=== PATIENT | female | born 1990 | race Two or more races ===

== ENCOUNTER 2020-04-07 14:37 | Outpatient (CLI) | payer OTHER | END 2020-04-07 15:00 | disposition home or self-care (01) | LOC: OFIC 805 14:37 | PROVIDERS: ATTEND Otolaryngology | DX: H93.11 Tinnitus, right ear (principal) ==

== ENCOUNTER 2020-06-07 09:03 | Outpatient (CLI) | payer OTHER | END 2020-06-07 17:16 | disposition home or self-care (01) | LOC: OFIC 805 09:03 | PROVIDERS: ATTEND Otolaryngology | DX: H93.11 Tinnitus, right ear (principal); H93.8X3 Other specified disorders of ear, bilateral ==

== ENCOUNTER 2022-10-17 13:59 | Outpatient (CLI) | payer OTHER | END 2022-10-17 17:01 | disposition home or self-care (01) | LOC: PRENATAL 13:59 | PROVIDERS: ATTEND Obstetrics & Gynecology Maternal & Fetal Medicine | DX: O35.9XX0 Maternal care for (suspected) fetal abnormality and damage, unspecified, not applicable or unspecified (principal); O35.3XX0 Maternal care for (suspected) damage to fetus from viral disease in mother, not applicable or unspecified; Z3A.24 24 weeks gestation of pregnancy ==